=== PATIENT | male | born 1985 | race Caucasian/White ===

== ENCOUNTER 2020-11-25 19:52 | Emergency (ER) | payer OTHER ==
[~2020-11-25] VITALS: Ht 162.6 cm; Wt 68.0 kg
--- NOTE | 2020-11-25 19:55 | NUR ---
Dr. Long at bedside for [facility].
--- NOTE | 2020-11-25 20:15 | NUR ---
Xray at bedside.
[2020-11-25 20:40] LABS: HEMATOCRIT 43.6 % (36.7-47.1); MEAN CORPUSCULAR HEMOGLOBIN 34.8 uug (23.8-33.4); MEAN CORPUSCULAR VOLUME 101.9 fL (73.0-96.2); PLATELET COUNT (AUTO) 253 K/uL (152-348)
[2020-11-25 20:46] LABS: CREATININE 1.1 mg/dL (0.6-1.3); POTASSIUM 4.5 mmol/L (3.5-5.1)
[2020-11-25 21:00] LABS: BILIRUBIN,DIRECT 0.1 mg/dL (0.0-0.2); BILIRUBIN,TOTAL 0.4 mg/dL (0.2-1.0); TOTAL PROTEIN, SERUM 7.1 g/dL (6.4-8.2)
--- NOTE | 2020-11-25 22:55 | NUR ---
CALLED [facility] FOR ADMISSION OF PATIENT. WAITIING FOR DIONICIO FOSTER TO CALL BACK.
--- NOTE | 2020-11-25 22:59 | NUR ---
Dr. Long speaking with Dr. Phillips of [place].
--- NOTE | 2020-11-26 00:03 | NUR ---
Called [facility], spoke with Sarkis, no transfer information available yet.
--- NOTE | 2020-11-26 01:48 | NUR ---
Called [facility], spoke with Sarkis, no transfer information available yet.
--- NOTE | 2020-11-26 02:21 | NUR ---
Received transfer information from [facility]. Patient is going to [facility], Room 5112, Number to report to is , Accepting MD is Dr. Romero, [facility] ACLS, eta [id number].
--- NOTE | 2020-11-26 02:42 | NUR ---
[facility] arrived to ER to transport patient to [facility], report and documentation given to EMT. Report given to Nasima NIELSEN of [facility]. Pt out of ER via ambulance gurney, no acute signs of distress, VSS, all belongings taken.
== END 2020-11-26 02:45 | disposition short-term general hospital (02) ==
LOC: ER 19:54
DX: R00.1 Bradycardia, unspecified (principal); R55 Syncope and collapse; Z20.822 Contact with and (suspected) exposure to COVID-19; Q90.9 Down syndrome, unspecified; H91.90 Unspecified hearing loss, unspecified ear; Z88.0 Allergy status to penicillin; Q25.0 Patent ductus arteriosus
CPT/HCPCS: 36415; 70030-TC; 71045; 83605; 85025; 85730; 87040; 93005